=== PATIENT | male | born 1955 | race Caucasian/White ===

== ENCOUNTER → 2017-06-30 | Outpatient (CLI) | payer MEDICARE ==
[2017-06-30 15:28] LABS: Alanine Aminotransfer (ALT/SGP 56 U/L (12-78); Albumin, Blood 3.7 g/dL (3.4-5.0); Albumin/Globulin Ratio 0.9 (0.8-1.8); Alk Phos 72 U/L (50-136); Anion Gap 7 mmol/L (6-16); Aspartate Aminotrans (AST/SGOT 36 U/L (12-37); Bilirubin, Total 0.5 mg/dL (0.1-1.0); Blood Urea Nitrogen 10 mg/dL (8-24); Bun/Creatinine Ratio 15.1 (12.0-20.0); CO2, Blood 28 mmol/L (21-32); Calcium, Blood 9.1 mg/dL (8.5-10.1); Chloride, Blood 106 mmol/L (98-108); Creatinine, Blood 0.66 mg/dL (0.60-1.20); Glomerular Filtration Rate >60 (60-); Glucose, Blood 97 mg/dL (70-99); Potassium, Blood 4.2 mmol/L (3.5-5.5); Sodium, Blood 141 mmol/L (136-145); Total Protein, Blood 7.7 g/dL (6.4-8.2)
[2017-06-30 15:32] LABS: BASOPHILS ABSOLUTE AUTO 0.05 K/mm3 (0.00-0.23); BASOPHILS PERCENT AUTO 1 % (0-2); EOSINOPHILS ABSOLUTE AUTO 0.73 K/mm3 (0.00-0.68); EOSINOPHILS PERCENT AUTO 10 % (0-6); Hematocrit 45.8 % (37.0-53.0); Hemoglobin 15.6 g/dL (13.5-17.5); IMMATURE GRAN ABSOLUTE AUTO 0.01 K/mm3 (0.00-0.10); IMMATURE GRAN PERCENT AUTO 0 % (0-1); LYMPHOCYTES ABSOLUTE AUTO 1.75 K/mm3 (0.84-5.20); LYMPHOCYTES PERCENT AUTO 25 % (21-46); MONOCYTES ABSOLUTE AUTO 0.59 K/mm3 (0.16-1.47); MONOCYTES PERCENT AUTO 8 % (4-13); Mean Corpuscular HGB 32.2 pg (26.0-34.0); Mean Corpuscular HGB Conc 34.1 g/dL (31.5-36.5); Mean Corpuscular Volume 95 fL (80-100); Mean Platelet Volume 9.5 fL (9.1-12.4); NEUTROPHILS PERCENT AUTO 56 % (41-73); Platelet Count 263 K/mm3 (150-400); RDW Coefficient Variation 12.4 % (11.7-14.2); RDW Standard Deviation 43.5 fL (35.1-46.3); Red Blood Cell Count 4.84 M/mm3 (4.30-5.90); White Blood Cell Count 7.03 K/mm3 (4.00-11.30)
== END ==
LOC: LAB SHORT 14:45 → LAB 14:45
PROVIDERS: Family Medicine
DX: N34.1 Nonspecific urethritis (principal)
CPT/HCPCS: 80053; 85025; 85651; 86592; 87389

== ENCOUNTER → 2017-07-11 | Outpatient (CLI) | payer MEDICARE | LOC: LAB 07:27 → LAB SHORT 07:27 | DX: R21 Rash and other nonspecific skin eruption (principal) | CPT/HCPCS: 88312 ==

== ENCOUNTER 2023-06-16 18:44 | Inpatient (IN) | payer MEDICARE ==
[~2023-06-16] VITALS: Ht 172.7 cm; Wt 64.9 kg
[2023-06-16] MEDS ORDERED: Furosemide 10 MG/ML 10ML Vial IV ONE (19:10)
[2023-06-16 19:21] LABS: Base Excess Venous 4.3 mmol/L; Bicarbonate Venous 24.7 mmol/L (24.0-30.0); PCO2 Venous 68.1 mmHg (38-42); pH Blood Venous 7.27 (7.34-7.37)
[2023-06-16] MEDS ORDERED: K-TAB ER20 ME1 PO (19:21)
[2023-06-16] MEDS ORDERED: FUROSEMIDE40 MG PO (19:21)
[2023-06-16 19:25] LABS: BASOPHILS ABSOLUTE AUTO 0.02 K/mm3 (0.00-0.23); BASOPHILS PERCENT AUTO 0 % (0-2); EOSINOPHILS PERCENT AUTO 0 % (0-6); Hemoglobin 19.7 g/dL (13.5-17.5); IMMATURE GRAN ABSOLUTE AUTO 0.03 K/mm3 (0.00-0.10); IMMATURE GRAN PERCENT AUTO 0 % (0-1); LYMPHOCYTES ABSOLUTE AUTO 0.81 K/mm3 (0.84-5.20); LYMPHOCYTES PERCENT AUTO 10 % (21-46); MONOCYTES ABSOLUTE AUTO 0.94 K/mm3 (0.16-1.47); MONOCYTES PERCENT AUTO 11 % (4-13); Mean Corpuscular HGB 31.7 pg (26.0-34.0); Mean Corpuscular HGB Conc 32.4 g/dL (31.5-36.5); Mean Corpuscular Volume 98 fL (80-100); Mean Platelet Volume 9.8 fL (9.1-12.4); NEUTROPHILS ABSOLUTE AUTO 6.76 K/mm3 (1.96-9.15); NEUTROPHILS PERCENT AUTO 79 % (41-73); NRBC ABSOLUTE 0.02 K/mm3 (0.00-0.02); NRBC Auto 0.2 /100 WBC (0.0-0.2); Platelet Count 129 K/mm3 (150-400); Red Blood Cell Count 6.22 M/mm3 (4.30-5.90); White Blood Cell Count 8.56 K/mm3 (4.00-11.30)
[2023-06-16 19:27] LABS: Hematocrit 60.8 % (37.0-53.0)
[2023-06-16] MEDS ORDERED: MethylPREDNISolone Sod Succ 125 MG Vial IV ONE (19:40)
[2023-06-16] MEDS ORDERED: Ipratropium/Albuterol SulF 2.5-0.5MG/3 ML Amp INH ONE (19:40)
[2023-06-16 19:50] LABS: Bilirubin, Total 1.8 mg/dL (0.1-1.0); Bun/Creatinine Ratio 27.3 (12.0-20.0); Creatinine, Blood 2.05 mg/dL (0.60-1.20); Globulin, Blood 2.9 g/dL (2.2-4.0); Potassium, Blood 5.3 mmol/L (3.5-5.5); Total Protein, Blood 5.9 g/dL (6.4-8.2)
[2023-06-16 21:23] LABS: Source, Urine Foley catheter
[2023-06-16 21:30] LABS: Bilirubin, Urine Neg (Neg); Blood, Urine 1+ (Neg); Glucose Qualitative, Urine Neg (Neg); Ketones, Urine Neg (Neg); Leukocyte Esterase, Urine Neg (Neg); Nitrite, Urine Neg (Neg); Protein, Urine Neg (Neg); Specific Gravity, Urine 1.015 (1.003-1.022); Urobilinogen, Urine NORM (Normal)
[2023-06-16 21:40] LABS: Appearance, Urine Clear (Clear); Color, Urine Yellow (P-Yellow)
[2023-06-16 21:52] LABS: Bacteria Not Seen /hpf; Red Blood Cells, Urine 0-2 /hpf (0-2); Squamous Epithelial Cells Not Seen /hpf (Few); White Blood Cells, Urine 0-2 /hpf (0-5)
[2023-06-16] MEDS ORDERED: Ondansetron HCl 2 MG / ML 2ML Vial IV PRN (22:30)
[2023-06-16] MEDS ORDERED: Enoxaparin 40 MG/0.4 ML SYR SC SCH (23:00)
[2023-06-16 23:52] VITALS: BP 100/88
[2023-06-17] VITALS (10 sets, daily range): BP systolic 92–125; BP diastolic 61–71
[2023-06-17 03:48] LABS: BASOPHILS PERCENT AUTO 0 % (0-2); EOSINOPHILS PERCENT AUTO 0 % (0-6); Hemoglobin 18.1 g/dL (13.5-17.5); IMMATURE GRAN ABSOLUTE AUTO 0.03 K/mm3 (0.00-0.10); IMMATURE GRAN PERCENT AUTO 0 % (0-1); LYMPHOCYTES ABSOLUTE AUTO 0.32 K/mm3 (0.84-5.20); LYMPHOCYTES PERCENT AUTO 4 % (21-46); MONOCYTES ABSOLUTE AUTO 0.19 K/mm3 (0.16-1.47); MONOCYTES PERCENT AUTO 2 % (4-13); Mean Corpuscular HGB 31.3 pg (26.0-34.0); Mean Corpuscular HGB Conc 32.3 g/dL (31.5-36.5); Mean Corpuscular Volume 97 fL (80-100); Mean Platelet Volume 10.1 fL (9.1-12.4); NEUTROPHILS ABSOLUTE AUTO 7.42 K/mm3 (1.96-9.15); NEUTROPHILS PERCENT AUTO 93 % (41-73); Platelet Count 114 K/mm3 (150-400); RDW Coefficient Variation 14.6 % (11.7-14.2); Red Blood Cell Count 5.79 M/mm3 (4.30-5.90); White Blood Cell Count 7.96 K/mm3 (4.00-11.30)
[2023-06-17 04:01] LABS: Hematocrit 56.1 % (37.0-53.0)
[2023-06-17 04:11] LABS: Albumin, Blood 2.7 g/dL (3.4-5.0); Albumin/Globulin Ratio 1.2 (0.8-1.8); Bilirubin, Total 1.3 mg/dL (0.1-1.0); Bun/Creatinine Ratio 34.6 (12.0-20.0); Calcium, Blood 8.8 mg/dL (8.5-10.1); Creatinine, Blood 1.62 mg/dL (0.60-1.20); Globulin, Blood 2.3 g/dL (2.2-4.0); Potassium, Blood 4.6 mmol/L (3.5-5.5)
[2023-06-17 04:39] LABS: Base Excess Venous 10.1 mmol/L; Bicarbonate Venous 29.4 mmol/L (24.0-30.0); PCO2 Venous 78.6 mmHg (38-42); pH Blood Venous 7.28 (7.34-7.37)
[2023-06-17 05:46] LABS: U Amphetamine Screen Not Detected; U Barbituate Screen Not Detected; U Benzodiazapine Screen Not Detected; U Buprenorphine Screen Not Detected; U Cannabinoids Screen Not Detected; U Cocaine Screen Not Detected; U Methadone Screen Not Detected; U Methamphetamine Screen Not Detected; U Opiates Screen Not Detected; U Oxycodone Screen Not Detected; U Phencyclidine Screen Not Detected
--- NOTE | 2023-06-17 06:50 | NUR ---
ARRIVAL TO PCU NOTE/SHIFT SUMMARY RECEIVED REPORT FROM UI ARCHITECT DAMIÁN GRIFFIN PT SHORTLY ARRIVED TO PCU 8 ~2330 06/16/23. RESPONDS TO VERBAL AND TACTILE STIMULI, BUT VERY LETHARGIC/SLEEPY. ABLE TO ANSWER SOME QUESTIONS, BUT SPEECH IS MUMBLED. ARRIVED ON BiPAP 20/12 80% FiO2 WHICH WAS ADJUSTED DURING THE SHIFT BY RT TO 16/10 50% FiO2. MAINTAINS SPO2 >92% WITH THESE SETTINGS. LS UPON ARRIVAL NOTED TO HAVE CRACKLES IN THE BASES, IMPROVEMENT NOTED BY END OF SHIFT. CARDIAC, ARRIVED IN SR 60-80'S WITH NO REPORTS OF CP, PRESSURE, OR PALPITATIONS. SBP SOFT BUT STABLE RANGING 90-110'S. GI/, TALBOT PLACED IN ER. CATH PATENT AND DRAINING YELLOW URINE TO GRAVITY. NO NEW ORDERS AT THIS TIME, WILL REPORT TO ONCOMING RN. SAHNI OF THIS NOTE.
[2023-06-17] MEDS ORDERED: Ipratropium/Albuterol SulF 2.5-0.5MG/3 ML Amp INH PRN (07:40)
--- NOTE | 2023-06-17 08:19 | NUR ---
AM NOTE Pt appears to be sleeping, resting in bed. Repositioned with clipper machine. Pt wakes with verbal stimuli. Oriented x4; calm and cooperative with care. Pt denies pain, chest pain/pressure, sob, nausea, dizziness and numb/tingling. Spo2 >90% on bipap 16/10 45% resp rate wnl, breathing even an unlabored. Tele sinus keith 50's, bp stable. Edema noted t/o. Abd firm, nontender, hyperactive bt noted. Other vss. No other acute changes noted. Will continue to monitor.
[2023-06-17] MEDS ORDERED: Furosemide 10 MG/ML 4ML Vial IV SCH ×2 (09:00)
[2023-06-17 11:45] LABS: International Normalized Ratio 1.69; Prothrombin Time Results 17.2 Sec (9.7-11.5)
[2023-06-17] MEDS ORDERED: Dose Adjust by Pharmacy XX STA (11:47)
[2023-06-17] MEDS ORDERED: Heparin Sodium,Porcine/0.5 NS 500 ML IV SCH (11:50)
[2023-06-17] MEDS ORDERED: Heparin Sodium 5000 Units/ML 1ML MDV IV ONE (11:50)
--- NOTE | 2023-06-17 17:48 | NUR ---
Shift Summary No acute changes t/o shift. >3L out during shift. Other vss. No other acute changes noted. Will continue to monitor.
[2023-06-18] VITALS (8 sets, daily range): BP systolic 92–114; BP diastolic 73–78
[2023-06-18 04:00] LABS: Hemoglobin 17.5 g/dL (13.5-17.5); Mean Corpuscular HGB Conc 31.4 g/dL (31.5-36.5); Mean Corpuscular Volume 99 fL (80-100); Mean Platelet Volume 9.9 fL (9.1-12.4); Platelet Count 109 K/mm3 (150-400); RDW Coefficient Variation 14.8 % (11.7-14.2); RDW Standard Deviation 53.4 fL (35.1-46.3); Red Blood Cell Count 5.65 M/mm3 (4.30-5.90); White Blood Cell Count 13.56 K/mm3 (4.00-11.30)
[2023-06-18 04:10] LABS: Hematocrit 55.7 % (37.0-53.0)
[2023-06-18 04:20] LABS: Bun/Creatinine Ratio 41.9 (12.0-20.0); Calcium, Blood 7.9 mg/dL (8.5-10.1); Creatinine, Blood 1.17 mg/dL (0.60-1.20); Potassium, Blood 4.3 mmol/L (3.5-5.5)
--- NOTE | 2023-06-18 05:10 | NUR ---
SHIFT SUMMARY PT A&Ox3, ANSWERS QUESTIONS APPROPRIATELY BUT IS VERY DROWSY AT TIMES. PT REFUSING BIPAP DESPITE EDUCATION REGARDING IMPORTANCE OF WEARING IT. PT STATES THAT HE FEELS LIKE HE CAN'T BREATH WITH THE BIPAP ON AND THAT IT IS TOO TIGHT; THE MASK LEAKED TOO MUCH WHEN STRAPS WERE LOOSENED. SpO2> 92% 2L VIA VENTI MASK, DENIES SOB. BP STABLE, SINUS 70-80's, DENIES CP/PRESSURE. PT HAD ONE SHORT RUN OF SVT AT START OF SHIFT, ASYMPTOMATIC. PT REMAINED BEDREST THROUGHOUT SHIFT. TALBOT CATH IN PLACE, PATENT, DRAINING CLEAR/YELLOW URINE TO GRAVITY. NO BM THIS SHIFT. Q2 TURNS AND ORAL CARE WITH SUCTION PROVIDED. NO OTHER EVENTS, WILL REPORT TO ONCOMING RN.
[2023-06-18] MEDS ORDERED: Dose Adjust by Pharmacy XX STA ×2 (06:32→16:03)
--- NOTE | 2023-06-18 07:37 | NUR ---
AM NOTE Pt responding to verbal stimuli, does note answer questions, but quickly falls back to sleep; occasionally nods yes/no. No s/sx of distress noted. Tele sinus 80's, bp stable. Spo2 >90% on 2l o2 via nc, placed bipap; setting avaps 20-25/8 500 tidal v. Abd firm, tender, hypoactive bt. Restarted heparin per orders. Other vss. Will continue to monitor.
--- NOTE | 2023-06-18 17:04 | NUR ---
Shift Summary Pt up in chair with 2 person max assist, discussed need for PT with MD, no new orders. Pt on 2l o2 via nc, wore bipap for approx 40 minutes this am. Pt alert, this evening, oriented to self, family. No other acute changes noted. Will continue to monitor.
[2023-06-18] MEDS ORDERED: Heparin Sodium,Porcine 5,000 UNIT/0.5 ML SDV SC SCH (21:00)
--- NOTE | 2023-06-18 23:03 | NUR ---
UPDATE WHILE ASSESSING PT AT BEGINNING OF SHIFT, PT NOT ANSWERING ANY QUESTIONS OR FOLLOWING COMMANDS. PT WAS WATCHING AND TRACKING THIS RN WALK AROUND ROOM DOING START OF SHIFT THINGS. PT EVENTUALLY STATED THAT THEY WERE AT THE HOSPITAL BUT WOULD NOT ANSWER ANY OTHER QUESTIONS. PT REFUSING BIPAP. PT's NOSE IS RED FROM BIPAP, THIS RN PLACED GEL PAD UNDER VENTI MASK. PT STILL PULLING MASK OFF AND THIS RN CONTINUED TO ASK PT TO LEAVE O2 ON AND PROVIDED EDUCATION REGARDING IMPORTANCE OF BIPAP AND O2. PT EVENTUALLY LEFT O2 ALONE. THIS RN WAS LEAVING ROOM PT BEGAN TALKING LIKE HE WASN'T LETHARGIC AT ALL AND CONTINUED TO INSULT AND TALK AGGRESSIVLY TO THIS RN. PT NOT COOPERATIVE WITH CARE.
[2023-06-19 03:55] VITALS: BP 91/73
[2023-06-19 04:36] LABS: Hemoglobin 17.8 g/dL (13.5-17.5); Mean Corpuscular HGB 31.7 pg (26.0-34.0); Mean Corpuscular HGB Conc 31.1 g/dL (31.5-36.5); Mean Corpuscular Volume 102 fL (80-100); Mean Platelet Volume 10.1 fL (9.1-12.4); NRBC ABSOLUTE 0.02 K/mm3 (0.00-0.02); NRBC Auto 0.2 /100 WBC (0.0-0.2); Platelet Count 96 K/mm3 (150-400); RDW Coefficient Variation 14.6 % (11.7-14.2); RDW Standard Deviation 55.7 fL (35.1-46.3); Red Blood Cell Count 5.61 M/mm3 (4.30-5.90); White Blood Cell Count 8.09 K/mm3 (4.00-11.30)
[2023-06-19 04:49] LABS: PO2 Arterial 83.8 mmHg (80-100)
[2023-06-19 04:50] LABS: pH Blood Arterial 7.26 (7.35-7.45)
[2023-06-19 04:51] LABS: PCO2 Arterial > 104 mmHg (35-45)
--- NOTE | 2023-06-19 05:10 | NUR ---
SHIFT SUMMARY SEE PREVIOUS NOTE, MENTATION AND BEHAVIOR HAVE NOT CHANGED. PT A&Ox3, REFUSING BIPAP DESPITE EDUCATION REGARDING IMPORTANCE OF WEARING IT. SpO2> 92% 2L VIA NC, DENIES SOB. BP STABLE, SINUS 70-80's, DENIES CP/PRESSURE. PT REMAINED BEDREST THROUGHOUT SHIFT. TALBOT CATH IN PLACE, PATENT, DRAINING CLEAR/YELLOW URINE TO GRAVITY. NO BM THIS SHIFT. Q2 TURNS PROVIDED. NO OTHER EVENTS, WILL REPORT TO ONCOMING RN.
[2023-06-19 05:15] LABS: Magnesium, Blood 1.6 mg/dL (1.6-2.4)
[2023-06-19 05:16] LABS: Hematocrit 57.3 % (37.0-53.0)
[2023-06-19 05:32] LABS: Alanine Aminotransfer (ALT/SGP 89 U/L (12-78); Albumin, Blood 2.8 g/dL (3.4-5.0); Albumin/Globulin Ratio 0.9 (0.8-1.8); Alk Phos 80 U/L (50-136); Aspartate Aminotrans (AST/SGOT 46 U/L (12-37); Bilirubin, Total 0.9 mg/dL (0.1-1.0); Blood Urea Nitrogen 44 mg/dL (8-24); Bun/Creatinine Ratio 39.6 (12.0-20.0); Calcium, Blood 8.3 mg/dL (8.5-10.1); Chloride, Blood 95 mmol/L (98-108); Creatinine, Blood 1.11 mg/dL (0.60-1.20); Glomerular Filtration Rate 73 (60-); Glucose, Blood 127 mg/dL (70-99); Phosphorus, Blood 3.8 mg/dL (2.5-4.9); Potassium, Blood 3.8 mmol/L (3.5-5.5); Sodium, Blood 141 mmol/L (136-145); Total Protein, Blood 5.8 g/dL (6.4-8.2)
[2023-06-19 05:33] LABS: Anion Gap Unable to Calculate mmol/L (3-11)
[2023-06-19 05:35] LABS: CO2, Blood >45 mmol/L (21-32)
[2023-06-19 08:54] LABS: Base Excess Venous 21.3 mmol/L; Bicarbonate Venous 39.5 mmol/L (24.0-30.0); PCO2 Venous 83.5 mmHg (38-42); pH Blood Venous 7.36 (7.34-7.37)
[2023-06-19 08:56] VITALS: BP 102/66
[2023-06-19 11:35] VITALS: BP 81/64
--- NOTE | 2023-06-19 12:18 | NUR ---
Pt placed on bipap this am, staff to room repeatedly to fix alarms and mask, pt has been attempting to take off. team cdl driver to room, tidal volumes less than 200 and chest not rising, started jaw thrust. Jaw thrust used several times while on bipap. Pt placed on side. Suction set up and at bedside. Palliative care, Dr Montiel and family notified of changes. Plans for ABG at 1230, RT notified.
[2023-06-19 12:57] LABS: PO2 Arterial 50.9 mmHg (80-100)
[2023-06-19 12:58] LABS: pH Blood Arterial 7.23 (7.35-7.45)
[2023-06-19 12:59] LABS: PCO2 Arterial > 104 mmHg (35-45)
[2023-06-19] MEDS ORDERED: LORazepam 2 MG/ML 1ML Injection IV PRN (13:25)
[2023-06-19] MEDS ORDERED: Morphine Sulfate 20 MG/1ML 1 ML Oral Syringe SL PRN (13:25)
[2023-06-19] MEDS ORDERED: Morphine Sulfate 10 MG/ML 1MLSYR IV PRN (13:25)
[2023-06-19] MEDS ORDERED: LORazepam 1 MG Tab PO PRN (13:25)
[2023-06-19] MEDS ORDERED: Atropine Sulfate 1% Opth Soln 2ML BTL SL PRN (13:25)
[2023-06-19] MEDS ORDERED: Ondansetron HCl 2 MG / ML 2ML Vial IV PRN (13:25)
[2023-06-19] MEDS ORDERED: Scopolamine Hydrobromide Patch TOP PRN (13:25)
--- NOTE | 2023-06-19 14:12 | NUR ---
Pt transitioned to comfort care. Medicated per emar. Pt son and daughter at bedside. Will continue to monitor.
--- NOTE | 2023-06-19 15:02 | NUR ---
Spiritual care visit conducted. Patient is lying in bed and minimally responsive. Son Won and his girlfriend are bedside and tearful. I conduct a life review of patient and learn about his many talents and hobbies and all that he has passed on to his son. Won states that the thing that he appreciates most is the character and heart of his father that he will always want to follow and what he cherishes as a gift. Won and his SO share there many concerns about all that they are trying to process right now that feels like pressure on top of grief. I normalize their experience, and provide therapeutic listening, anticipatory grief support, gentle deputy general counsel and prayer. They showed signs of being conforted,
--- NOTE | 2023-06-19 16:46 | NUR ---
Called to see pt he is struggling on bipap with air hunger and poor tolerance. Lab show multi-system failure. Pt ventilation very poor abdomen distended. positive jvd. plan with phsycian is get him comfortable on bipapa nd see is abg improves. Repeat abg shows worsenting repitory failure. updated family ptwanted break form bipap and mouthed to stop. Son asked him if he wanted hospice. pt told him I want to be comfortable and to stop. So and his Significant other agreed to comfort care. pt having worsening mottleing and more ashen. Medicated for comfort when family came back from break bipap mask removed. pt much more comfortable and resting. Chaplian in to visit. Son expressed great stress at managing his fathers home and wishes. Reviewed with him some strategies on managing his passing. Will follow up.
--- NOTE | 2023-06-19 19:02 | NUR ---
Patient at approx 1745; Misa Emilee as second. Notified son and [id number]; notified provided; nursing supervision and donor line. Awaiting donor line, then will call homes, [facility].
== END 2023-06-19 22:08 ==
LOC: ER 18:44 → PCU 18:45
PROVIDERS: Emergency Medicine; Internal Medicine; Student in an Organized Health Care Education/Training Program; ADMIT Internal Medicine
PROC: 5A09457 Assistance with Respiratory Ventilation, 24-96 Consecutive Hours, Continuous Positive Airway Pressure (ICD-10-PCS; principal; 2023-06-16)
PROC: 0T9B70Z Drainage of Bladder with Drainage Device, Via Natural or Artificial Opening (ICD-10-PCS; 2023-06-17)
PROC: 4A133R1 Monitoring of Arterial Saturation, Peripheral, Percutaneous Approach (ICD-10-PCS; 2023-06-19)
DX: I50.33 Acute on chronic diastolic (congestive) heart failure (principal); G92.8 Other toxic encephalopathy; I21.A1 Myocardial infarction type 2; J96.01 Acute respiratory failure with hypoxia; J96.02 Acute respiratory failure with hypercapnia; Z51.5 Encounter for palliative care; Z66 Do not resuscitate; R18.8 Other ascites; N17.9 Acute kidney failure, unspecified; E87.29 Other acidosis; I36.1 Nonrheumatic tricuspid (valve) insufficiency; F17.200 Nicotine dependence, unspecified, uncomplicated; J43.9 Emphysema, unspecified; I27.20 Pulmonary hypertension, unspecified; K76.89 Other specified diseases of liver; D69.6 Thrombocytopenia, unspecified; Z88.0 Allergy status to penicillin
CPT/HCPCS: 36415; 36600; 51702; 71045; 71260; 80048; 80053; 81001; 82140; 82803; 83735; 83880; 84100; 84484; 85025; 85027; 85610; 85730; 93306; 94640; 94660; 94664; 94762; 96374; 96375; 99285-25; A9270; J1644; J1650; J1940; J2060; J2270; J2405; J2930; Q9967